=== PATIENT | female | born 1960 | race African-American/Black ===

== ENCOUNTER → 2017-03-03 | Outpatient (CLI) | payer BC ==
--- NOTE | ~2017-03-03 | CR63 ---
[facility] A Service of [facility] / [facility] RADIOLOGY TEXT RESULTS PATIENT: LLOYD HODGE LOCATION: [facility] : 58 UNIT #: [id number] AGE: [address]: ELYSE MIDDLETON APRN SEX: F ORDER DR: [id number] [facility] [address] [place] [address] [place], [place] [address] [id number] O MR#: [id number] Acc #: [id number] NAME: LLOYD HODGE : 1960 SEX: F STUDY DATE/TIME: 03/03/2017 11:56 UNIT: [facility] ROOM: STUDY DESCRIPTION: CR Chest 2 View Attending Physician: Radha Salinas Referring Physician: Radha Salinas Ordering Physician: Radha Salinas Primary Care Physician: [facility] MEDICAL IMAGING REPORT This report is preliminary unless electronic signature is present EXAM Two-view chest, 03/03/2017. HISTORY 56-year-old female with cough, weakness, and fatigue for one year. Smoker. COMPARISON None. FINDINGS Two views of the chest demonstrate clear lungs. No pleural effusion or pneumothorax. Heart size and mediastinum are normal. Pulmonary vasculature normal. IMPRESSION No acute cardiopulmonary findings. Dictated by... Carlyle Ryan M.D. THIS IS AN ELECTRONICALLY VERIFIED REPORT Carlyle Ryan M.D. at 03/04/2017 8:07 AM DEEPTI/damaris TD: 03/03/2017 23:51 JOB #: [id number] MEDICAL IMAGING REPORT Page 1 of 1 COPY
== END | disposition home or self-care (01) ==
LOC: CRAD 11:40
DX: R53.83 Other fatigue (principal)
CPT/HCPCS: 71020